=== PATIENT | male | born 1945 | race Caucasian/White ===

== ENCOUNTER 2016-07-01 11:51 | Emergency (ER) | payer OTHER ==
[~2016-07-01] VITALS: Ht 172.7 cm; Wt 94.8 kg
[~2016-07-01 11:51] MED LIST: AMLO-114 PO; APR/25 PO; ASPEC81 PO; CARV12.52 PO; CHOL100010 PO; CZR50 PO; FRS/40 PO; OMEGCAP2 PO; POTA10CA28 PO; PRLSR20 PO; SIMV20TA2 PO; TRAM-10 PO
[2016-07-01 11:57] VITALS: TEMP 36.4; Ht 172.7 cm; Wt 94.8 kg
[2016-07-01 12:52] LABS: BASO % 0.8 %; BASO ABS # 0.06 K/uL (0-0.2); COMPLETE YES; EOS % 2.4 %; HEMATOCRIT 46.6 % (42-52); IG% 0.4 %; LYMPH % 15.9 %; LYMPH ABS # 1.18 K/uL (1.2-3.4); MEAN CELL VOLUME 88.9 fL (80-100); MEAN CORPUSCULAR HEMOGLOBIN 33.4 pg (25-34); MEAN CORPUSCULAR HGB CONC 37.6 g/dl (32-36); MEAN PLATELET VOLUME 9.5 fL (7.4-10.4); MONO % 9.3 %; NEUT % 71.2 %; PLATELET COUNT 225 K/uL (130-400); RED BLOOD COUNT 5.24 M/uL (4.7-6.1); WHITE BLOOD COUNT 7.41 K/uL (4.8-10.8)
[2016-07-01 13:02] LABS: ALT/SGPT 54 U/L (12-78); AST/SGOT 29 U/L (15-37); BLOOD UREA NITROGEN 18 mg/dl (7-18); BUN/CREATININE RATIO 13.6 (10-20); CALCIUM 9.5 mg/dl (8.5-10.1); CARBON DIOXIDE 27 mmol/L (21-32); CHLORIDE 103 mmol/L (98-107); GLUCOSE 124 mg/dl (70-99); POTASSIUM 3.4 mmol/L (3.5-5.1); SODIUM 140 mmol/L (136-145)
--- NOTE | 2016-07-01 13:09 | DIAGNOSTIC IMAGING REPORT ---
CT SCAN OF THE BRAIN WITHOUT IV CONTRAST CLINICAL HISTORY: Headache. COMPARISON STUDY: MRI of the brain dated 05/20/2011. TECHNIQUE: Unenhanced axial CT scan of the brain is performed from the vertex to the skull base. CT DOSE: 614.27 mGy.cm FINDINGS: Brain parenchyma: There are age-related involutional changes noting mild subcortical and periventricular microangiopathic change. There is no hemorrhage, mass effect, or evidence of acute territorial ischemia by CT criteria. Hyde-white matter is preserved. No extra-axial fluid collection is seen. Ventricles, sulci, cisterns: Prominent secondary to involutional change. Intracranial vasculature: There is atherosclerotic calcification of the cavernous carotid arteries. Calvarium: Unremarkable. Sinuses and mastoids: The visualized paranasal sinuses are clear. Findings suggest bilateral mastoid surgery. There is partial opacification of the mastoid cavities. Orbits: The bony orbits are grossly intact. There are bilateral ocular lens implants. IMPRESSION: There is no hemorrhage, mass effect, or evidence of acute territorial ischemia by CT criteria. Electronically signed by: Didier Hirsch M.D. 07/01/2016 1:07 PM Dictated Date/Time: 07/01/2016 1:05 PM
[2016-07-01 13:12] LABS: ALKALINE PHOSPHATASE 86 U/L (45-117)
--- NOTE | 2016-07-01 13:57 | DIAGNOSTIC IMAGING REPORT ---
CHEST 2 VIEWS ROUTINE CLINICAL HISTORY: Cough. COMPARISON STUDY: Chest radiograph May 19, 2011. FINDINGS: There is a healed fracture of the right clavicle. No pneumothorax or pleural effusion is present. There is no evidence of pulmonary edema. Cardiac size is normal. Mediastinal contours are normal. IMPRESSION: No acute cardiopulmonary findings. Electronically signed by: Tone Raya M.D. 07/01/2016 1:55 PM Dictated Date/Time: 07/01/2016 1:54 PM
--- NOTE | 2016-07-01 14:28 | EMERGENCY ROOM VISIT NOTE ---
History Report prepared by Maida: Rashard Zamarripa Under the Supervision of: Dr. Irena De Paz D.O. First contact with patient: 12:34 Chief Complaint: HYPERTENSION Stated Complaint: HIGH BP History of Present Illness The patient is a 71 year old male who presents to the Emergency Room with complaints of persistent high blood pressure that started this morning. The patient also complains of a headache on top of his head, feeling his heart racing, seeing his heart beat out of the corner of his eye like pulsating, and feeling jittery. He notes that about 12 years ago he was admitted to the hospital for high blood pressure, however, he has not had an episode like this in awhile. He denies any medication changes or missing any doses. The patient does note that his grandson might have caused him some extra stress these past few days. He has been eating normally yesterday and today including salad, fish , a sweet before bed, eggs, mushrooms, and a half slice of shepherd. The patient also notes that he has been having mucus symptoms and coughing for the past few days. Source of History: patient Onset: this morning Position: other (global) Timing: other (persistent) Associated Symptoms: + cough, + headache (top of his head) Note: Other associated symptoms: feeling heart race, heart beat/ pulsating out of corner of eye, jittery, mucus symptoms Review of Systems See HPI for pertinent positives & negatives. A total of 10 systems reviewed and were otherwise negative. Past Medical & Surgical Medical Problems: (1) Dyslipidemia (2) Hypertensive disorder, systemic arterial (3) Migraine without aura (4) Muscle pain (5) Muscular headache (6) Spinal stenosis of lumbar region (7) Vertigo Family History FH: cancer FH: diabetes mellitus FH: gallbladder disease FH: heart disease FH: hypertension FH: kidney disease Social History Smoking Status: Never Smoker Alcohol Use: none Marital Status: Current/Historical Medications Scheduled Amlodipine (Norvasc), 10 MG PO QAM Aspirin Enteric Coated (Ecotrin Or Generic *), 81 MG PO HS Carvedilol (Coreg), 12.5 MG PO BID Cholecalciferol (Vitamin D), 1,000 INTER.UNIT PO QAM Furosemide (Lasix), 40 MG PO BID Hydralazine HCl (Hydralazine HCl), 1 TAB PO QAM Losartan Potassium (Cozaar *), 100 MG PO QAM [place]ster-3 Fatty Acids (Fish Oil), 1 CAP PO QAM Omeprazole (Prilosec), 20 MG PO HS Potassium Chloride (Micro-K Ext Rel), 10 MEQ PO TID Simvastatin (Zocor), 20 MG PO HS Tramadol (Ultram), 50-100 MG PO Q8HR PRN Allergies Coded Allergies: ROHAN Inhibitors (Verified Allergy, Unknown, RASH AND SORES IN MOUTH, ) Sulfa Antibiotics (Verified Allergy, Unknown, RASH, 07/01/16) Fenofibrate (Verified Adverse Reaction, Unknown, FATIGUE, 07/01/16) Gemfibrozil (Verified Adverse Reaction, Unknown, UPSET STOMACH; SEES RAINBOWS, 07/01/16) Tetracycline (Verified Adverse Reaction, Unknown, UPSET STOMACH, 07/01/16) Physical Exam Vital Signs Date Time Temp Pulse Resp B/P Pulse Ox O2 Delivery O2 Flow Rate FiO2 07/01/16 14:44 51 18 130/83 94 Room Air 07/01/16 13:14 58 16 141/84 94 Room Air 07/01/16 12:44 60 16 160/84 96 Room Air 07/01/16 12:20 63 07/01/16 12:15 63 16 161/88 95 Room Air 07/01/16 11:57 36.4 68 16 173/99 97 Room Air Physical Exam HEENT: Head - normocephalic and atraumatic Pupils are equal, round, and reactive to light. Extraocular eye muscles are intact, and sclera are anicteric. Nose - moist nasal mucosa without discharge. Mouth - moist buccal mucosa. Oropharynx is nonerythematous and there is no tonsillar exudate or edema noted. Neck: Supple; no JVD, nuchal rigidity, cervical lymphadenopathy. Heart: Regular rate and rhythm. There is a normal S1 and S2 with no murmurs, clicks, or gallops appreciated. Lungs: Clear to auscultation bilaterally with no wheezes, rales, or rhonchi. Abdomen: Soft, completely nontender, nondistended, with good bowel sounds. There are no palpable pulsatile masses or hepatosplenomegaly. There is no guarding, rigidity, or rebound noted. Extremities: No evidence of cyanosis, clubbing, or edema. There are easily palpable peripheral pulses. Skin: warm and dry with good turgor and no rashes. Medical Decision & Procedures ER Provider Diagnostic Interpretation: Other radiology results as stated below per my review and the radiologist's interpretation: CT SCAN OF THE BRAIN WITHOUT IV CONTRAST CLINICAL HISTORY: Headache. COMPARISON STUDY: MRI of the brain dated 05/20/2011. TECHNIQUE: Unenhanced axial CT scan of the brain is performed from the vertex to the skull base. CT DOSE: 614.27 mGy.cm FINDINGS: Brain parenchyma: There are age-related involutional changes noting mild subcortical and periventricular microangiopathic change. There is no hemorrhage, mass effect, or evidence of acute territorial ischemia by CT criteria. Hyde-white matter is preserved. No extra-axial fluid collection is seen. Ventricles, sulci, cisterns: Prominent secondary to involutional change. Intracranial vasculature: There is atherosclerotic calcification of the cavernous carotid arteries. Calvarium: Unremarkable. Sinuses and mastoids: The visualized paranasal sinuses are clear. Findings suggest bilateral mastoid surgery. There is partial opacification of the mastoid cavities. Orbits: The bony orbits are grossly intact. There are bilateral ocular lens implants. IMPRESSION: There is no hemorrhage, mass effect, or evidence of acute territorial ischemia by CT criteria. Electronically signed by: Didier Hirsch M.D. 07/01/2016 1:07 PM Dictated Date/Time: 07/01/2016 1:05 PM CHEST 2 VIEWS ROUTINE CLINICAL HISTORY: Cough. COMPARISON STUDY: Chest radiograph May 19, 2011. FINDINGS: There is a healed fracture of the right clavicle. No pneumothorax or pleural effusion is present. There is no evidence of pulmonary edema. Cardiac size is normal. Mediastinal contours are normal. IMPRESSION: No acute cardiopulmonary findings. Electronically signed by: Tone Raya M.D. 07/01/2016 1:55 PM Dictated Date/Time: 07/01/2016 1:54 PM Laboratory Results 07/01/16 12:15 Red Blood Count 5.24, Mean Corpuscular Volume 88.9, Mean Corpuscular Hemoglobin 33.4, Mean Corpuscular Hemoglobin Concent 37.6, Mean Platelet Volume 9.5, Neutrophils (%) (Auto) 71.2, Lymphocytes (%) (Auto) 15.9, Monocytes (%) (Auto) 9.3, Eosinophils (%) (Auto) 2.4, Basophils (%) (Auto) 0.8, Neutrophils # (Auto) 5.27, Lymphocytes # (Auto) 1.18, Monocytes # (Auto) 0.69, Eosinophils # (Auto) 0.18, Basophils # (Auto) 0.06 07/01/16 12:15 Test 07/01/16 12:15 07/01/16 12:22 White Blood Count 7.41 K/uL (4.8-10.8) Red Blood Count 5.24 M/uL (4.7-6.1) Hemoglobin 17.5 g/dL (14.0-18.0) Hematocrit 46.6 % (42-52) Mean Corpuscular Volume 88.9 fL (80-100) Mean Corpuscular Hemoglobin 33.4 pg (25-34) Mean Corpuscular Hemoglobin Concent 37.6 g/dl (32-36) Platelet Count 225 K/uL (130-400) Mean Platelet Volume 9.5 fL (7.4-10.4) Neutrophils (%) (Auto) 71.2 % Lymphocytes (%) (Auto) 15.9 % Monocytes (%) (Auto) 9.3 % Eosinophils (%) (Auto) 2.4 % Basophils (%) (Auto) 0.8 % Neutrophils # (Auto) 5.27 K/uL (1.4-6.5) Lymphocytes # (Auto) 1.18 K/uL (1.2-3.4) Monocytes # (Auto) 0.69 K/uL (0.11-0.59) Eosinophils # (Auto) 0.18 K/uL (0-0.5) Basophils # (Auto) 0.06 K/uL (0-0.2) RDW Standard Deviation 41.7 fL (36.4-46.3) RDW Coefficient of Variation 12.8 % (11.5-14.5) Immature Granulocyte % (Auto) 0.4 % Immature Granulocyte # (Auto) 0.03 K/uL (0.00-0.02) Anion Gap 10.0 mmol/L (3-11) Est Creatinine Clear Calc Drug Dose 59.9 ml/min Estimated GFR () 64.5 Estimated GFR (Non- 55.7 BUN/Creatinine Ratio 13.6 (10-20) Calcium Level 9.5 mg/dl (8.5-10.1) Total Bilirubin 0.8 mg/dl (0.2-1) Direct Bilirubin 0.2 mg/dl (0-0.2) Aspartate Amino Transf (AST/SGOT) 29 U/L (15-37) Alanine Aminotransferase (ALT/SGPT) 54 U/L (12-78) Alkaline Phosphatase 86 U/L (45-117) Total Creatine Kinase 79 U/L (39-308) Creatine Kinase MB < 0.5 ng/ml (0.5-3.6) Creatine Kinase MB Ratio (0-3.0) Troponin I < 0.015 ng/ml (0-0.045) Pro-B-Type Natriuretic Peptide 23 pg/ml (0-900) Total Protein 8.6 gm/dl (6.4-8.2) Albumin 4.5 gm/dl (3.4-5.0) Thyroid Stimulating Hormone (TSH) 2.790 uIu/ml (0.300-4.500) Bedside Glucose 120 mg/dl (70-99) Laboratory results per my review. ECG Indication: other (hypertension) Rate (beats per minute): 59 Rhythm: sinus bradycardia Findings: no acute ischemic change, no ectopy ED Course 1240: Past medical records reviewed. The patient was evaluated in room C10. A complete history and physical exam was performed. 1350: At this time, I reevaluated the patient and he was resting comfortably. His blood pressure came down on its own without medications. 1430: Upon reevaluation, the patient feels completely better since his symptoms have resolved. He recalls at this time that he has been eating a lot of potato and tortilla chips recently. I discussed findings and results with him. He verbalized agreement of the treatment plan. The patient was discharged home. Medical Decision The patient is a 71 year old male who presents to the ED with hypertension. Differential diagnosis includes hypertensive urgency, intracranial hemorrhage, anxiety, cardiac ischemia, or cardiac dysrhythmia. No leukocytosis, stable h&h, glucose 124, negative cardiac enzymes, normal TSH and renal function. The patient presents emergency department with an elevated blood pressure, a pulsing sensation in his eyes, and a headache. EKG and cardiac enzymes were negative. The patient's blood pressure normalized on its own. CT scan of the brain was unremarkable. After talking to the patient about his diet, it seems that he has been eating a lot of detail chips and tortilla chips. Increase salt intake could've caused an increase in his blood pressure. I have asked him to watch his diet closely. He will keep a blood pressure log and follow up with his PCP. He was told to return to the emergency department if he developed pain chest pain or shortness of breath or worsening symptoms. Impression Primary Impression: Uncontrolled hypertension Additional Impression: Headache Scribe Attestation The scribe's documentation has been prepared under my direction and personally reviewed by me in its entirety. I confirm that the note above accurately reflects all work, treatment, procedures, and medical decision making performed by me. Departure Information Dispostion Home / Self-Care Referrals Braxton Tracey M.D. (PCP) Forms HOME CARE DOCUMENTATION FORM, IMPORTANT VISIT INFORMATION, WORK / SCHOOL INSTRUCTIONS Patient Instructions My [facility] Additional Instructions Rest Limit stress and anxiety. Avoid foods with added salt. Return to the ER if symptoms worsen! Problem Qualifiers Additional Impression: Headache Headache chronicity pattern: acute headache
[2016-07-01 14:44] VITALS: BP 130/83; PULSE 51; O2SAT 94
== END 2016-07-01 15:00 | disposition home or self-care (01) ==
LOC: C.EDB 11:52 → C.EDC 15:00
DX: I10 Essential (primary) hypertension (principal); R51 Headache; E78.5 Hyperlipidemia, unspecified; M48.06 Spinal stenosis, lumbar region; Z82.49 Family history of ischemic heart disease and other diseases of the circulatory system; Z79.82 Long term (current) use of aspirin; Z79.899 Other long term (current) drug therapy